=== PATIENT | male | born 1970 ===

== ENCOUNTER 2018-02-18 15:13 | Emergency (ER) | payer SELFPAY ==
[2018-02-18 15:18] VITALS: BP 135/67; PULSE 91; RESP 18; TEMP 98.3; O2SAT 98
--- NOTE | 2018-02-18 15:34 | PD ---
HPI Chief Complaint: ENT Complaint Time Seen by Provider: 15:22 Travel History International Travel<30 days: Yes Contact w/Intl Traveler<30days: Yes Name of Country Traveled to: patient came from [place] 1 week ago Traveled to known affect area: No History of Present Illness HPI 47-year-old [place] male presents emergency department with bilateral ear congestion and discomfort as well as sinus headache which she has had for over a week. He denies fever, chills, sore throat, postnasal drip, difficulty breathing or cough. He has been using [id number] nasal spray without much relief. He has had no drainage from the ears. He denies any abdominal discomfort or chest pain. He has had his tonsils removed. He is unsure if he has allergies. He has no known drug allergies to medications. [facility] Past Medical History Medical History: Denies Significant Hx Tetanus Vaccination: Unknown Past Surgical History Surgical History: No Previous Surgery Social History Alcohol Use: No Tobacco Use: Yes Substance Use: No Allergies-Medications (Allergen,Severity, Reaction): Coded Allergies: No Known Allergies (Unverified , 02/18/18) Reported Meds & Prescriptions Reported Meds & Active Scripts Active No Active Prescriptions or Reported Medications Review of Systems Except as stated in HPI: all other systems reviewed are Neg General / Constitutional: No: Fever Eyes: No: Visual changes HENT: Positive: Headaches, Rhinitis, Rhinorrhea, Congestion, Earache, No: Vertigo, Lightheadedness, Sore Throat, Nosebleed, Neck Stiffness, Neck Pain, Gingival Bleeding, Dental Difficulties, Ear Discharge Cardiovascular: No: Chest Pain or Discomfort Respiratory: No: Shortness of Breath Gastrointestinal: No: Abdominal Pain Genitourinary: No: Dysuria Musculoskeletal: No: Pain Skin: No Rash Neurologic: No: Weakness Psychiatric: No: Depression Endocrine: No: Polydipsia Hematologic/Lymphatic: No: Easy Bruising Physical Exam Narrative GENERAL: Patient appears in no obvious distress SKIN: Warm and dry. Normal color. Normal turgor HEAD: Atraumatic. Normocephalic. Mild sinus tenderness to percussion and palpation. EYES: Pupils equal and round. No scleral icterus. No injection or drainage. ENT: No nasal bleeding or discharge. Mucous membranes pink and moist. Both TMs are retracted with serous fluid behind without injection. Posterior pharynx is unremarkable without significant postnasal drip or erythema. No significant lymphadenopathy or exudate. Airways patent. Pharynx is clear NECK: Trachea midline. Supple and nontender without lymphadenopathy CARDIOVASCULAR: Regular rate and rhythm. RESPIRATORY: No accessory muscle use. Clear to auscultation. Breath sounds equal bilaterally. MUSCULOSKELETAL: Extremities without clubbing, cyanosis, or edema. No obvious deformities. NEUROLOGICAL: Awake and alert. No obvious cranial nerve deficits. Motor grossly within normal limits. Five out of 5 muscle strength in the arms and legs. Normal speech. PSYCHIATRIC: Appropriate mood and affect; insight and judgment normal. Data Data Last Documented VS Vital Signs Date Time Temp Pulse Resp B/P (MAP) Pulse Ox O2 Delivery O2 Flow Rate FiO2 02/18/18 15:18 98.3 91 18 135/67 (89) 98 MDM Medical Decision Making Medical Screen Exam Complete: Yes Emergency Medical Condition: Yes Differential Diagnosis Ear pain. Sinus congestion. Sinusitis. Eustachian tube dysfunction. Seasonal allergies. Narrative Course Patient will be treated with amoxicillin 875 twice daily 10 days. Patient also started on Flonase nasal spray 2 sprays each nostril daily. Patient given short course of prednisone 20 mg twice daily for 5 days. Patient is started on Zyrtec 10 mg daily #30 Patient to follow-up if symptoms do not improve in the next week Diagnosis Primary Impression: Chronic eustachian tube dysfunction Qualified Codes: H69.83 - Other specified disorders of eustachian tube, bilateral Additional Impressions: Allergic rhinitis due to allergen Qualified Codes: J30.1 - Allergic rhinitis due to pollen Sinusitis, acute Qualified Codes: J01.40 - Acute pansinusitis, unspecified Patient Instructions: Allergic Rhinitis (ED), Eustachian Tube Dysfunction (GEN) , General Instructions, Rhinosinusitis (ED) Additional Instructions: Patient will be treated with amoxicillin 875 twice daily 10 days. Patient also started on Flonase nasal spray 2 sprays each nostril daily. Patient given short course of prednisone 20 mg twice daily for 5 days. Patient is started on Zyrtec 10 mg daily #30 Patient to follow-up if symptoms do not improve in the next week Med/Other Pt SpecificInfo: Prescription(s) given Scripts No Active Prescriptions or Reported Meds Disposition: DISCHARGE HOME Condition: Stable Mario Hand Feb 18, 2018 15:34
[2018-02-18] MEDS ORDERED: FEXO15TA PO (15:37)
[2018-02-18] MEDS ORDERED: AMOX875T PO (15:37)
[2018-02-18] MEDS ORDERED: FLUT1SPR5 EACH NARE (15:37)
[2018-02-18] MEDS ORDERED: PRED20 PO (15:37)
== END 2018-02-18 15:48 | disposition home or self-care (01) ==
LOC: NEPK 15:13
DX: J30.1 Allergic rhinitis due to pollen (principal); J01.40 Acute pansinusitis, unspecified; Z72.0 Tobacco use
CPT/HCPCS: 99283